=== PATIENT | female | born 1990 | race Two or more races ===

== ENCOUNTER 2023-09-10 20:53 | Emergency (ER) | payer BC, OTHER ==
[~2023-09-10] VITALS: Ht 160 cm; Wt 108.8 kg
[2023-09-11] MEDS: KETOROLAC TROMETH 60MG/2ML VIAL IM ONE (01:45)
[2023-09-11 02:00] VITALS: PULSE 85; RESP 16; TEMP 98.6; O2SAT 98
[2023-09-11] MEDS ORDERED: IBUP-1455 PO (04:22)
[2023-09-11 04:49] VITALS: BP 128/74; PULSE 75; RESP 13; O2SAT 98
== END 2023-09-11 04:55 | disposition home or self-care (01) ==
LOC: ER 20:53
DX: S63.501A Unspecified sprain of right wrist, initial encounter (principal); I80.01 Phlebitis and thrombophlebitis of superficial vessels of right lower extremity; R20.2 Paresthesia of skin; Z88.6 Allergy status to analgesic agent; X50.1XXA Overexertion from prolonged static or awkward postures, initial encounter; Y93.89 Activity, other specified; Y92.89 Other specified places as the place of occurrence of the external cause; Y99.8 Other external cause status
CPT/HCPCS: 73090; 73110; 73130; 93971; J1885

== ENCOUNTER 2024-02-02 16:26 | Emergency (ER) | payer BC ==
[~2024-02-02] VITALS: Ht 157.5 cm; Wt 92.0 kg
[~2024-02-02 16:26] MED LIST: IBUP-1455 PO
[2024-02-02] MEDS ORDERED: IBUP-1455 PO (18:41)
[2024-02-02 18:44] VITALS: BP 159/79; PULSE 90; RESP 18; TEMP 98.4; O2SAT 98
[2024-02-02] MEDS: HYDROcodone-ACET 5/325MG TAB PO ONE (18:51)
== END 2024-02-02 18:58 | disposition home or self-care (01) ==
LOC: ER 16:26
DX: M62.838 Other muscle spasm (principal); Z79.899 Other long term (current) drug therapy; Z88.5 Allergy status to narcotic agent
CPT/HCPCS: 93971